=== PATIENT | male | born 1955 | race Caucasian/White ===

== ENCOUNTER → 2017-04-18 | Outpatient (CLI) | payer BC ==
[2017-04-18 16:35] LABS: ALT/SGPT 52 U/L (12-78); AST/SGOT 33 U/L (15-37); BLOOD UREA NITROGEN 14 mg/dl (7-18); BUN/CREATININE RATIO 12.8 (10-20); CALCIUM 8.8 mg/dl (8.5-10.1); CARBON DIOXIDE 28 mmol/L (21-32); CHLORIDE 106 mmol/L (98-107); GLUCOSE 108 mg/dl (70-99); POTASSIUM 3.7 mmol/L (3.5-5.1); SODIUM 142 mmol/L (136-145)
[2017-04-18 16:46] LABS: ALB/GLOB RATIO 1.2 (0.9-2); ALKALINE PHOSPHATASE 55 U/L (45-117); CHOLESTEROL 158 mg/dl (0-200); HDL CHOLESTEROL 40 mg/dl; LDL CHOLESTEROL CALCULATED 63 mg/dl; TRIGLYCERIDES 275 mg/dl (0-150); VERY LOW DENSITY LIPOPROT CALC 55 mg/dl
[2017-04-18 19:56] LABS: ESTIMATED AVERAGE GLUCOSE 192 mg/dl; HA1C FLAG Normal (Normal)
== END | disposition home or self-care (01) ==
LOC: C.LABBFT 12:37
PROVIDERS: ATTEND Internal Medicine
DX: E11.9 Type 2 diabetes mellitus without complications (principal)

== ENCOUNTER → 2017-07-04 | Outpatient (CLI) | payer BC | END | disposition home or self-care (01) | LOC: C.LABBFT 13:18 | PROVIDERS: ATTEND Nurse Practitioner Family | DX: N40.1 Benign prostatic hyperplasia with lower urinary tract symptoms (principal) ==

== ENCOUNTER → 2017-08-23 | Outpatient (CLI) | payer BC ==
[2017-08-23 09:48] LABS: HEMATOCRIT 43.7 % (42-52); MEAN CELL VOLUME 88.3 fL (80-100); MEAN CORPUSCULAR HEMOGLOBIN 31.1 pg (25-34); MEAN CORPUSCULAR HGB CONC 35.2 g/dl (32-36); PLATELET COUNT 165 K/uL (130-400); RED BLOOD COUNT 4.95 M/uL (4.7-6.1); WHITE BLOOD COUNT 5.13 K/uL (4.8-10.8)
[2017-08-23 10:05] LABS: ALT/SGPT 36 U/L (12-78); BLOOD UREA NITROGEN 14 mg/dl (7-18); BUN/CREATININE RATIO 15.9 (10-20); CALCIUM 9.1 mg/dl (8.5-10.1); CARBON DIOXIDE 29 mmol/L (21-32); CHLORIDE 107 mmol/L (98-107); CHOLESTEROL 143 mg/dl (0-200); CREATININE 0.88 mg/dl (0.60-1.40); GLUCOSE 145 mg/dl (70-99); SODIUM 141 mmol/L (136-145); TRIGLYCERIDES 165 mg/dl (0-150); VERY LOW DENSITY LIPOPROT CALC 33 mg/dl
[2017-08-23 10:15] LABS: ALB/GLOB RATIO 1.1 (0.9-2); ALKALINE PHOSPHATASE 50 U/L (45-117); AST/SGOT 19 U/L (15-37); CHOLESTEROL/HDL RATIO 3.5; HDL CHOLESTEROL 41 mg/dl; LDL CHOLESTEROL CALCULATED 69 mg/dl
== END | disposition home or self-care (01) ==
LOC: C.LAB 09:13
PROVIDERS: ATTEND Internal Medicine
DX: E11.65 Type 2 diabetes mellitus with hyperglycemia (principal)

== ENCOUNTER → 2017-09-13 | Outpatient (CLI) | payer BC ==
[2017-09-13 11:17] LABS: BLOOD UREA NITROGEN 17 mg/dl (7-18); BUN/CREATININE RATIO 18.6 (10-20); CREATININE 0.94 mg/dl (0.60-1.40)
== END | disposition home or self-care (01) ==
LOC: C.LAB 09:51
PROVIDERS: ATTEND Urology
DX: R97.20 Elevated prostate specific antigen [PSA] (principal)

== ENCOUNTER → 2017-10-03 | Outpatient (CLI) | payer BC ==
[~2017-10-03] VITALS: Ht 177.8 cm; Wt 104.3 kg
[2017-10-03 13:04] VITALS: BP 130/78; PULSE 93; Ht 177.8 cm; Wt 104.3 kg
== END | disposition home or self-care (01) ==
LOC: C.NEUR 12:53
PROVIDERS: ATTEND Internal Medicine Pulmonary Disease
DX: G47.33 Obstructive sleep apnea (adult) (pediatric) (principal); R06.83 Snoring; E66.9 Obesity, unspecified

== ENCOUNTER → 2017-11-27 | Outpatient (CLI) | payer BC | END | disposition home or self-care (01) | LOC: C.PATHSPEC 17:15 | PROVIDERS: ATTEND Urology | DX: R97.20 Elevated prostate specific antigen [PSA] (principal) ==

== ENCOUNTER → 2018-03-21 | Outpatient (CLI) | payer BC ==
[2018-03-21 11:42] LABS: HEMOGLOBIN A1C 6.5 % (4.5-5.6)
[2018-03-21 11:59] LABS: ALBUMIN 3.8 gm/dl (3.4-5.0); ALT/SGPT 27 U/L (12-78); AST/SGOT 15 U/L (15-37); BLOOD UREA NITROGEN 16 mg/dl (7-18); CALCIUM 8.9 mg/dl (8.5-10.1); CARBON DIOXIDE 27 mmol/L (21-32); CREATININE 0.92 mg/dl (0.60-1.40); GLUCOSE 176 mg/dl (70-99); POTASSIUM 3.8 mmol/L (3.5-5.1); SODIUM 138 mmol/L (136-145)
[2018-03-21 12:01] LABS: ALKALINE PHOSPHATASE 64 U/L (45-117); CHOLESTEROL 146 mg/dl (0-200); LDL CHOLESTEROL CALCULATED 54 mg/dl
== END | disposition home or self-care (01) ==
LOC: C.LAB 09:59
PROVIDERS: ATTEND Internal Medicine
DX: E11.9 Type 2 diabetes mellitus without complications (principal)

== ENCOUNTER 2023-06-07 19:25 | Inpatient (IN) ==
[2023-06-07] MEDS ORDERED: SODIUM CHLORIDE 0.9% 1000ML 500 ML IV ONE (19:48)
[2023-06-07] MEDS ORDERED: HYDROmorphone INJ 0.5 MG/0.5 ML SYR IV PRN (19:48)
[2023-06-07] MEDS ORDERED: ONDANSETRON INJ 2 MG/ML 2 ML VIAL IV STA (19:48)
[2023-06-07 20:30] LABS: Albumin Globulin Ratio 1.6 (0.9-2); Albumin Level 4.4 gm/dl (3.4-5.0); Bilirubin,Total 0.9 mg/dl (0.2-1.0); Calcium 9.3 mg/dl (8.6-10.3); Creatinine Clr Calc Pharmacy 85.4 ml/min; Est GFR (African American) 93.8 ml/min; Est GFR (Non-African American) 80.9 ml/min; Globulin 2.7 gm/dl (2.5-4.0); Potassium 4.2 mmol/L (3.5-5.1); Total Protein 7.1 gm/dl (6.0-8.3)
[2023-06-07] MEDS ORDERED: OPTIRAY 320 100ml IV ONE (20:34)
[2023-06-07 20:36] LABS: Troponin I High Sensitivity 3.3 pg/ml (0-20)
[2023-06-07 20:39] LABS: Hematocrit (blood only) 44.8 % (42.0-52.0); Hemoglobin 15.9 g/dl (14.0-18.0); Lymphocytes % (auto) 6.4 %; Mean Corpuscular Hemoglobin 30.9 pg (25.0-34.0); Mean Corpuscular Hgb Conc 35.5 g/dL (32.0-36.0); Mean Corpuscular Volume 87.2 fL (80.0-100.0); Mean Platelet Volume 10.6 fL (9.4-12.4); Monocytes % (auto) 5.2 %; Neutrophils % (auto) 87.4 %; Platelet Count 158 K/uL (130-400); RDW Coefficient of Variation 12.7 % (11.5-14.5); RDW Standard Deviation 40.6 fL (36.4-46.3); Red Blood Count 5.14 M/uL (4.70-6.10); White Blood Count 11.78 K/ul (4.8-10.8)
[2023-06-07 20:40] LABS: Basophils # (auto) 0.02 K/uL (0-0.2); Basophils % (auto) 0.2 %; Eosinophils # (auto) 0.01 K/uL (0-0.50); Eosinophils % (auto) 0.1 %; Immature Granulocytes # (auto) 0.08 K/uL (0.01-0.20); Immature Granulocytes % (auto) 0.7 %; Lymphocytes # (auto) 0.75 K/uL (1.2-3.4); Monocytes # (auto) 0.61 K/uL (0.11-0.59); Neutrophils # (auto) 10.31 K/uL (1.40-6.50); Platelet Estimate Decreased (Normal)
[2023-06-07] MEDS: SODIUM CHLORIDE 0.9% 1000ML 1,000 ML IV SCH (21:03)
--- NOTE | 2023-06-07 21:22 | Emergency Department Note ---
Impression & Plan Syncope and collapse, Closed compression fracture of lumbar vertebra, Cervical strain, acute, Abrasion of face ED Provider Note INFORMANT: Patient ED PROVIDER(S): Oscar Arciniega MD CHIEF COMPLAINT: Fall PLAN: Disposition: Admitted Condition: Good Outpatient prescription management: none Referral: MEDICAL DECISION MAKING: Patient presented because of a syncopal episode causing a fall. Chief complaint noted vertigo but it was actually lightheadedness. The patient did very well after the actual fall but then unfortunately developed more back pain. He was treated with fentanyl prehospital and currently is noting some returning of the pain with attempted movement. Cervical collar is in place. Work-up was initiated. Primary and secondary surveys performed. Patient only had a minor abrasion to the face. He is neurologically intact. He had no complaints of neurologic symptoms either. He was actually able to ambulate for several hours prior to the development of the pain. Full trauma CT imaging was performed to rule out any other injury but also to evaluate for the cause of the syncope. Head and cervical spine imaging were unremarkable. I did review the patient's cervical collar and examine him fully. He had no residual tenderness. He had excellent range of motion without limitation. Chest and abdomen/pelvis imaging unremarkable except for the fact that there is a visible nondisplaced L2 fracture as well as an endplate L3 fracture. The patient did receive a dose of IV Dilaudid and was hydrated. He also received Zofran. He was reassessed multiple times. Initially there was some delay and reaching orthopedic spine however I was able to discuss the case with Dr. Murrieta and he felt the patient would be appropriate to stay here as his injury is nonoperative. He will consult on the patient in the morning. Exact etiology of the patient's syncopal episode is still not obvious. Further management will be necessary. Consultation was made with Dr. Elie Eller of the [facility] service. Patient was evaluated in the ER for further management. Discussed with manager statistical After review of the information above and other included data, I feel the patient requires admission. Triage Nursing notes reviewed and agree them. Vital Signs: reviewed and remarkable for no significant abnormalities Prior /Outside records reviewed: none Differential diagnosis: Fracture, dislocation, contusion, intra-abdominal, pneumothorax, intrathoracic, intracranial, neurologic, compartment syndrome, rhabdomyolysis, Vasovagal event, dehydration, infection, hypoglycemia, electrolyte abnormalities, cardiac sources, intracerebral event, pulmonary embolism, seizure, toxicologic, neurologic, as well as other pathologies. Diagnostics, as interpreted by me: ECG: Twelve-lead ECG reveals a normal sinus rhythm at 72 bpm. Incomplete right bundle branch block. No ST elevation or depression. No TWI. When compared to 04/09/2022 there is no change. Cardiac Monitoring: Cardiac monitoring ordered by me: The patient was placed on continuous cardiac monitoring and observed. It revealed a normal sinus rhythm at 82 beats per minute without ectopy or evidence of dysrhythmia. Medical decision rules: none Imaging studies: CT scan of the head and cervical spine negative for acute traumatic pathology. CT scan of the chest with IV contrast is negative for traumatic pathology. CT scan of the abdomen pelvis as well as lumbar spine reveal an L2 vertical fracture and L3 endplate fracture. HPI: The patient is a 68 year old male who presents to the Emergency Room with complaints of fall. This started about 7 hours ago and is described about falli ng 5 to 6 feet off of scaffolding at his home. Patient states he has been getting lightheaded and today was working for about half an hour and then knew he was getting lightheaded again. Denied any room spinning-like sensations. Patient states he then had a syncopal episode. He woke up on the ground. He was able to get up and cleaned up his work stuff. He states that he was able to ambulate without difficulty or much pain at all. Patient then went inside to rest and started to develop low back pain. He then noted some minimal low cervical neck pain after several hours. Patient states that when he got up again he felt lightheaded like he may pass out but did not. The patient also n otes the following associated symptoms, none. The patient has been given fentanyl by EMS for relieving factors. Current pain is rated as 1/10. Patient denies recent illness. Pt denies headache, visual changes, upper chest pain, breathing difficulties, nausea, vomiting, abdominal pain, back pain, extremity pain, numbness, weakness, open wounds, active bleeding, bowel or bladder dysfunction, or other complaints. PAST MEDICAL HISTORY: See Below, diabetes, hypertension PAST SURGICAL HISTORY: See Below, SOCIAL HISTORY: See Below, HOME MEDICATIONS: See Below ALLERGIES: See Below VITALS: See Below PHYSICAL EXAMINATION: GENERAL: Awake, alert, nontoxic-appearing, in no distress HENT: Normocephalic, atraumatic except for minor abrasion on chin. Oropharynx unremarkable. EYES: Normal conjunctiva. Sclera non-icteric. NECK: Inspection normal. Minimal inferior midline tenderness without step-offs. Trachea midline. No JVD. RESPIRATORY: Clear to auscultation. No wheezes. No rales. Normal respiratory effort. CARDIAC: Normal rate. Normal rhythm. No murmurs. No rubs. Extremities warm and well perfused. Pulses equal. No JVD. GI: Soft, non-distended. No tenderness to palpation. No rebound or guarding. No masses. RECTAL: Deferred. MUSCULOSKELETAL: Atraumatic extremities. Chest examination reveals no tenderness. There is lumbar midline tenderness without step-off. No joint edema. Calves are equal size bilaterally and non-tender. No edema. No discoloration. NEURO: Normal sensorium. No sensory or motor deficits noted. No saddle anesthesia. SKIN: No rash or jaundice noted. Past Med/Surg History Medical History BPH (benign prostatic hyperplasia) Diabetes mellitus, type 2 Dyslipidemia Fatty liver Hypertension Sensorineural hearing loss of both ears Sleep apnea Tinnitus, bilateral Surgical History H/O prostate biopsy History of colonoscopy History of lumbar surgery History of tooth extraction Hx of oral surgery (12/25/22) Hx of surgical procedure Family History Brother Diabetes Sister Diabetes Mother Diabetes Father Diabetes Grandmother Colon cancer Unknown Hypertension Grandfather Myocardial infarction Uncle Prostate cancer Other No family history of adverse response to anesthesia Denies family history of Ovarian cancer Breast cancer Social History Smoking Status: Never smoker Second Hand Exposure: No; Do You Dip or Chew Tobacco: No; Hx Alcohol Use: Yes Alcohol type: hard liquor Alcohol Intake Frequency: Monthly or Less Alcohol Intake Frequency Comment: rarely Hx Substance Use: No Preferred Language: Nicaraguan Communication Ability: Effective Visual Impairment: No Limitations Hearing Ability: Normal Scrip Clerk Required: No Beliefs That Will Affect Care: None marital status: Current Living Situation: Spouse current occupational status: retired current occupation: used to work in construction How many Children do You have: 2 Feels Safe at Home: Yes Childhood Exposure to Second-Hand Smoke: No Diet: diabetic caffeine: Yes (very little) during the past year weight has: remained stable Dental Care, Regularly: No Physical Activity Frequency: Does not Exercise Physical Activity Frequency Comment: does mostly throughout the summer Seatbelt Use: always Sunscreen Use: No Assistive Devices: CPAP and Glasses Allergies Allergies Allergy/AdvReac Type Severity Reaction Status Date / Time IRVING Inhibitors AdvReac Intermediate Cough Verified 01/28/23 12:51 Beta-Adrenergic Agents AdvReac Intermediate Cough Verified 01/28/23 12:51 Home Meds Home Medications Medication Instructions Recorded Confirmed [id number] acid 400 1 tab PO QAM 08/10/18 04/24/23 mcg-vit K 20 mcg-lycop 300 mcg tablet (Men's Multivitamin) cholecalciferol (vitamin D3) 25 25 mcg PO QAM 06/27/21 04/24/23 mcg (1,000 unit) capsule aspirin 81 mg tablet,delayed 81 mg PO QAM 04/16/22 04/24/23 release tamsulosin 0.4 mg capsule 0.8 mg PO PM 12/20/22 04/24/23 Previous Rx's Medication Instructions Recorded atorvastatin 10 mg tablet 10 mg PO QPM #90 tabs 09/23/22 insulin glargine 100 unit/mL (3 40 unit (0.4 mL) subcut QAM #45 mL 09/23/22 mL) subcutaneous pen (Lantus Solostar U-100 Insulin) metformin 1,000 mg tablet 1,000 mg PO BID #180 tabs 09/23/22 losartan 100 1 tab PO QAM #90 tabs 09/24/22 mg-hydrochlorothiazide 12.5 mg tablet nifedipine 60 mg tablet,extended 60 mg PO QAM #90 tabs 09/24/22 release pen needle, diabetic 31 gauge x #100 ea 09/26/2216" (BD Ultra-Fine Mini Pen Needle) blood sugar diagnostic (OneTouch #200 ea 10/21/22 Verio test strips) lancets 33 gauge (OneTouch Delica #200 ea 10/21/22 Lancets) Trulicity 3 mg/0.5 mL subcutaneous 3 mg (0.5 mL) subcut .COMPLEX #6 mL 11/12/22 pen injector (dulaglutide) ondansetron HCl 8 mg tablet 8 mg PO Q8H PRN nausea and 12/25/22 vomiting #10 tabs finasteride 5 mg tablet 5 mg PO DAILY #90 tabs 03/13/23 Results & Data (ED) Vital Signs Vital Signs - 24 hr 06/07/23 19:28 06/07/23 19:33 06/07/23 19:31 Temperature 36.8 C Temperature Source Oral Pulse Rate 89 89 Pulse Rate [Apical] Pulse Rhythm [Apical] Pulse Strength [Apical] Respiratory Rate 16 15 Respiratory Effort / Characteristics Non-Labored Non-Labored Respiratory Depth Normal Normal Respiratory Pattern Regular Regular Blood Pressure 143/85 H Blood Pressure [Right Arm] Blood Pressure Mean 104 Blood Pressure Mean [Right Arm] Pulse Oximetry 93 98 Oxygen Delivery Method Room Air Room Air Oxygen Flow Rate Sepsis Recent Fever Within 48 Hours No Sepsis New/Unexplained Change in Mental Status No Sepsis Action Taken by Nursing No Action Required 06/07/23 19:48 06/07/23 21:15 06/07/23 22:55 Temperature 36.9 C Temperature Source Oral Pulse Rate 82 Pulse Rate [Apical] 71 63 Pulse Rhythm [Apical] Regular Regular Pulse Strength [Apical] Respiratory Rate 16 14 Respiratory Effort / Characteristics Non-Labored Non-Labored Respiratory Depth Normal Normal Respiratory Pattern Regular Blood Pressure Blood Pressure [Right Arm] 123/74 115/75 Blood Pressure Mean Blood Pressure Mean [Right Arm] 90 88 Pulse Oximetry 99 95 96 Oxygen Delivery Method Room Air Nasal Cannula Oxygen Flow Rate 2 Sepsis Recent Fever Within 48 Hours Sepsis New/Unexplained Change in Mental Status Sepsis Action Taken by Nursing 06/07/23 23:32 06/08/23 00:00 Temperature Temperature Source Pulse Rate 64 Pulse Rate [Apical] 64 Pulse Rhythm [Apical] Regular Pulse Strength [Apical] Normal Respiratory Rate 21 Respiratory Effort / Characteristics Non-Labored Spontaneous Respiratory Depth Normal Respiratory Pattern Regular Blood Pressure Blood Pressure [Right Arm] 136/76 Blood Pressure Mean Blood Pressure Mean [Right Arm] 96 Pulse Oximetry 96 Oxygen Delivery Method Nasal Cannula Oxygen Flow Rate 2 Sepsis Recent Fever Within 48 Hours Sepsis New/Unexplained Change in Mental Status Sepsis Action Taken by Nursing Laboratory Data 06/07/23 19:34 06/07/23 19:34 Lab Results 07/22/23 07/22/23 07/22/23 Range/Units 19:34 19:34 20:10 WBC 11.78 H (4.8-10.8) K/ul RBC 5.14 (4.70-6.10) M/uL Hgb 15.9 (14.0-18.0) g/dl Hct 44.8 (42.0-52.0) % MCV 87.2 (80.0-100.0) fL MCH 30.9 (25.0-34.0) pg MCHC 35.5 (32.0-36.0) g/dL RDW Std Deviation 40.6 (36.4-46.3) fL RDW Coeff of Justice 12.7 (11.5-14.5) % Plt Count 158 (130-400) K/uL MPV 10.6 (9.4-12.4) fL Immature Gran % (Auto) 0.7 % Neut % (Auto) 87.4 % Lymph % (Auto) 6.4 % [place] % (Auto) 5.2 % Eos % (Auto) 0.1 % Baso % (Auto) 0.2 % Neut # (Auto) 10.31 H (1.40-6.50) K/uL Lymph # (Auto) 0.75 L (1.2-3.4) K/uL [place] # (Auto) 0.61 H (0.11-0.59) K/uL Eos # (Auto) 0.01 (0-0.50) K/uL Baso # (Auto) 0.02 (0-0.2) K/uL Immature Gran # (Auto) 0.08 (0.01-0.20) K/uL Platelet Estimate Decreased L (Normal) Sodium 137 (136-145) mmol/L Potassium 4.2 (3.5-5.1) mmol/L Chloride 104 (98-107) mmol/L Carbon Dioxide 25 (21-32) mmol/L Anion Gap 8 (3-11) BUN 23 (6-23) mg/dl Creatinine 0.96 (0.6-1.4) mg/dl Est Cr Clr Drug Dosing 85.4 ml/min Est GFR ( Amer) 93.8 ml/min Est GFR (Non-Af Amer) 80.9 ml/min BUN/Creatinine Ratio 24.0 H (10-20) Glucose 160 H (70-99(Fasting)) mg/dl Calcium 9.3 (8.6-10.3) mg/dl Total Bilirubin 0.9 (0.2-1.0) mg/dl AST 25 (13-39) U/L ALT 17 (7-52) U/L Alkaline Phosphatase 57 (34-104) U/L Troponin I High Sens 3.3 (0-20) pg/ml Total Protein 7.1 (6.0-8.3) gm/dl Albumin 4.4 (3.4-5.0) gm/dl Globulin 2.7 (2.5-4.0) gm/dl Albumin/Globulin Ratio 1.6 (0.9-2) Urine Color Urine Appearance (Clear) Urine pH (4.5-7.5) Ur Specific [place] (1.000-1.030) Urine Protein (Negative) Urine Glucose (UA) (Negative) Urine Ketones (Negative) Urine Blood (Negative) Urine Nitrite (Negative) Urine Bilirubin (Negative) Urine Urobilinogen (Negative) Ur Leukocyte Esterase (Negative) SARS-CoV-2, RNA, NAAT NEGATIVE (NEGATIVE) 06/07/23 Range/Units 23:04 WBC (4.8-10.8) K/ul RBC (4.70-6.10) M/uL Hgb (14.0-18.0) g/dl Hct (42.0-52.0) % MCV (80.0-100.0) fL MCH (25.0-34.0) pg MCHC (32.0-36.0) g/dL RDW Std Deviation (36.4-46.3) fL RDW Coeff of Justice (11.5-14.5) % Plt Count (130-400) K/uL MPV (9.4-12.4) fL Immature Gran % (Auto) % Neut % (Auto) % Lymph % (Auto) % [place] % (Auto) % Eos % (Auto) % Baso % (Auto) % Neut # (Auto) (1.40-6.50) K/uL Lymph # (Auto) (1.2-3.4) K/uL [place] # (Auto) (0.11-0.59) K/uL Eos # (Auto) (0-0.50) K/uL Baso # (Auto) (0-0.2) K/uL Immature Gran # (Auto) (0.01-0.20) K/uL Platelet Estimate (Normal) Sodium (136-145) mmol/L Potassium (3.5-5.1) mmol/L Chloride (98-107) mmol/L Carbon Dioxide (21-32) mmol/L Anion Gap (3-11) BUN (6-23) mg/dl Creatinine (0.6-1.4) mg/dl Est Cr Clr Drug Dosing ml/min Est GFR ( Amer) ml/min Est GFR (Non-Af Amer) ml/min BUN/Creatinine Ratio (10-20) Glucose (70-99(Fasting)) mg/dl Calcium (8.6-10.3) mg/dl Total Bilirubin (0.2-1.0) mg/dl AST (13-39) U/L ALT (7-52) U/L Alkaline Phosphatase (34-104) U/L Troponin I High Sens (0-20) pg/ml Total Protein (6.0-8.3) gm/dl Albumin (3.4-5.0) gm/dl Globulin (2.5-4.0) gm/dl Albumin/Globulin Ratio (0.9-2) Urine Color Yellow Urine Appearance Clear (Clear) Urine pH 5.5 (4.5-7.5) Ur Specific [place] > 1.045 H (1.000-1.030) Urine Protein Negative (Negative) Urine Glucose (UA) Negative (Negative) Urine Ketones 1+ H (Negative) Urine Blood Negative (Negative) Urine Nitrite Negative (Negative) Urine Bilirubin Negative (Negative) Urine Urobilinogen Negative (Negative) Ur Leukocyte Esterase Negative (Negative) SARS-CoV-2, RNA, NAAT (NEGATIVE) Administered Medications Hydromorphone HCl (Hydromorphone Inj 0.5 Mg/0.5 Ml Syr) 0.5 mg IV Q15M PRN PRN Reason: pain Stop: 06/21/23 19:59 Last Admin: 06/07/23 20:16 Dose: 0.5 mg Documented By: CEK Sodium Chloride (Nss 1000ml) 1,000 mls @ 125 mls/hr IV .Q8H MICHAEL Stop: 07/07/23 19:59 Last Admin: 06/07/23 21:03 Dose: 125 mls/hr Documented By: BRIONNA Discontinued Medications Atorvastatin Calcium (Atorvastatin 10 Mg Tab) 10 mg PO NOW ONE Stop: 06/08/23 00:52 Last Admin: 06/08/23 01:11 Dose: 10 mg Documented By: MAXWELL Sodium Chloride (Nss 1000ml) 500 mls @ 999 mls/hr IV .Q31M ONE Stop: 06/07/23 20:18 Last Infusion: 06/07/23 20:46 Dose: 999 mls/hr Documented By: Admin: 06/07/23 20:11 Dose: 999 mls/hr Documented By: BRIONNA Ioversol (Optiray 320 100ml) 94 ml IV ONCE ONE Stop: 06/07/23 20:35 Last Admin: 06/07/23 20:35 Dose: 94 ml Documented By: HERBER Ondansetron HCl (Ondansetron Inj 2 Mg/Ml 2 Ml Vial) 4 mg IV NOW STA Stop: 06/07/23 19:49 Last Admin: 06/07/23 20:16 Dose: 4 mg Documented By: BRIONNA Tamsulosin HCl (Tamsulosin Hcl 0.4 Mg Cap) 0.8 mg PO NOW ONE Stop: 06/08/23 00:52 Last Admin: 06/08/23 01:04 Dose: 0.8 mg Documented By: MAXWELL Imaging Data Radiologist's Impression: Abdomen/Pelvis CT 06/07/23 19:49 Exam(s): CT ABDOMEN + PELVIS With Contrast IV Amt: 94 ml optiray 320 EXAM: CT Abdomen and Pelvis With Intravenous Contrast CLINICAL HISTORY: Reason for exam: syncope, fall 6 ft. TECHNIQUE: Axial computed tomography images of the abdomen and pelvis with intravenous contrast. CTDI is 26.665 mGy and DLP is 1540.27 mGy-cm. Automated exposure control was utilized for the study. A dose lowering technique was utilized adhering to the principles of ALARA. CONTRAST: Patient received 94 ml optiray 320 of IV contrast COMPARISON: No relevant prior studies available. FINDINGS: Lung bases: Unremarkable. No mass. No consolidation. Mediastinum: Calcified subcarinal lymph nodes, partially included in the [id number]-[id number]-gyun. ABDOMEN: Liver: Unremarkable. No mass. Gallbladder and bile ducts: Unremarkable. No calcified stones. No ductal dilation. Pancreas: Unremarkable. No mass. No ductal dilation. Spleen: Unremarkable. No splenomegaly. Adrenals: Unremarkable. No mass. Kidneys and ureters: Unremarkable. No hydronephrosis or delayed nephrogram. Stomach and bowel: Diverticulosis, without acute diverticulitis. No small bowel obstruction. No free intraperitoneal air. PELVIS: Appendix: Normal appendix. Bladder: Nonobstructing calculi in the urinary bladder. Reproductive: Enlarged prostate gland measures 6.7 cm mid-lateral. ABDOMEN and PELVIS: Intraperitoneal space: Unremarkable. No free air. No significant fluid collection. Bones/joints: Acute fractures of L2 and L3, see the concomitant lumbar spine CT scan. Degenerative changes of the spine. No dislocation. Soft tissues: Unremarkable. Vasculature: Atherosclerotic changes of the aorta. No abdominal aortic aneurysm. Lymph nodes: See above. IMPRESSION: Acute fractures of L2 and L3, see the concomitant lumbar spine CT scan. Electronically signed by: Ibrahima Huber MD 06/07/23 22:[address] 06/07/23 19:49 Exam(s): CT C SPINE EXAM: CT Cervical Spine Without Intravenous Contrast CLINICAL HISTORY: Reason for exam: Trauma. TECHNIQUE: Axial computed tomography images of the cervical spine without intravenous contrast. CTDI is 26.65 mGy and DLP is 607.41 mGy-cm. Automated exposure control was utilized for the study. A dose lowering technique was utilized adhering to the principles of ALARA. COMPARISON: No relevant prior studies available. FINDINGS: The vertebral body heights are maintained. The craniocervical junction is intact. The atlanto-dens interval is maintained. The dens is intact. There is no spondylolisthesis. Multilevel cervical spondylosis and degenerative disc disease. Straightening of the cervical lordosis. The unenhanced neck soft tissues are grossly unremarkable. The visualized lung apices are grossly clear. IMPRESSION: No acute fracture or subluxation of the cervical spine. Electronically signed by: Ibrahima Huber MD 06/07/23 21:[address] 06/07/23 19:49 Exam(s): CT CHEST With Contrast IV Amt: 94 ml optiray 320 EXAM: CT Chest With Intravenous Contrast CLINICAL HISTORY: Reason for exam: Trauma. TECHNIQUE: Axial computed tomography images of the chest with intravenous contrast. CTDI is 28.14 mGy and DLP is 1021.39 mGy-cm. Automated exposure control was utilized for the study. A dose lowering technique was utilized adhering to the principles of ALARA. CONTRAST: Patient received 94 ml optiray 320 of IV contrast COMPARISON: No relevant prior studies available. FINDINGS: Lungs: Dependent atelectasis. Pleural space: Unremarkable. No focal consolidation, pleural effusion, or pneumothorax. Heart: Unremarkable. No significant pericardial effusion. No significant coronary artery calcifications. No cardiomegaly. Mediastinum: Calcified subcarinal and RIGHT hilar lymph nodes, correlate for history of granulomatous disease. Bones/joints: Unremarkable. No dislocation. No acute fractures. Soft tissues: Unremarkable. Vasculature: Unremarkable. No thoracic aortic aneurysm. Lymph nodes: See above. IMPRESSION: 1. No focal consolidation, pleural effusion, or pneumothorax. 2. No acute fractures. 3. Calcified subcarinal and RIGHT hilar lymph nodes, correlate for history of granulomatous disease. Electronically signed by: Ibrahima Huber MD 06/07/23 21:[address] 06/07/23 19:49 Exam(s): CT HEAD Without Contrast EXAM: CT Head Without Intravenous Contrast CLINICAL HISTORY: Reason for exam: Trauma. TECHNIQUE: Axial computed tomography images of the head/brain without intravenous contrast. CTDI is 36.9 mGy and DLP is 624.41 mGy-cm. Automated exposure control was utilized for the study. A dose lowering technique was utilized adhering to the principles of ALARA. COMPARISON: No relevant prior studies available. FINDINGS: No acute intracranial hemorrhage. No midline shift or mass effect. The territorial [place]-white matter differentiation is maintained throughout. Age-related cerebral volume loss. Periventricular and subcortical white matter hypoattenuation, consistent with chronic microangiopathy. The visualized orbits appear grossly unremarkable. The calvarium is intact. The visualized paranasal sinuses and mastoid air cells are grossly clear. IMPRESSION: No acute intracranial hemorrhage, midline shift, or mass effect. Electronically signed by: Ibrahima Huber MD 06/07/23 21:[address] 06/07/23 19:49 Exam(s): CT L SPINE With Contrast IV Amt: 94 ml optiray 320 EXAM: CT Lumbar Spine With Intravenous Contrast CLINICAL HISTORY: Reason for exam: Trauma. TECHNIQUE: Axial computed tomography images of the lumbar spine with intravenous contrast. CTDI is 26.65 mGy and DLP is 1540.27 mGy-cm. Automated exposure control was utilized for the study. A dose lowering technique was utilized adhering to the principles of ALARA. CONTRAST: Patient received 94 ml optiray 320 of IV contrast COMPARISON: No relevant prior studies available. FINDINGS: Acute fracture of the superior endplate of L3, without significant loss of height. Acute fracture vertically through the L2 vertebral body. Mild, chronic loss of height. Lumbar spine MRI should be considered for further evaluation. No spondylolisthesis. The posterior elements are maintained, without evidence of acute fracture. The pedicles are intact. Multilevel lumbar spondylosis and degenerative disc disease. IMPRESSION: Acute fracture of the superior endplate of L3, without significant loss of height. Acute fracture vertically through the L2 vertebral body. Mild, chronic loss of height. Electronically signed by: Ibrahima Huber MD 06/07/23 21:55 PM Discharge Plan Visit Data Chief Complaint: Fall Stated Complaint: FELL 5-6 FEET AT NOON, BACK PAIN ED Provider: Oscar Arciniega Discharge Problem: Syncope and collapse, Closed compression fracture of lumbar vertebra, Cervical strain, acute, Abrasion of face Forms Stand Alone Forms: [facility] Nostalgia [facility]ingo Prescriptions Prescriptions: No Action metformin 1,000 mg tablet 1,000 mg PO BID Qty: 180 3RF insulin glargine [Lantus Solostar U-100 Insulin] 100 unit/mL (3 mL) insulin pen 40 unit subcut QAM Qty: 45 3RF atorvastatin 10 mg tablet 10 mg PO QPM Qty: 90 3RF nifedipine 60 mg tablet extended release 60 mg PO QAM Qty: 90 3RF losartan-hydrochlorothiazide 100-12.5 mg tablet 1 tab PO QAM Qty: 90 3RF (DME) pen needle, diabetic [BD Ultra-Fine Mini Pen Needle] 31 gauge x 3/16" needle See Rx Instructions .ROUTE .MEDSUPPLY Qty: 100 3RF Rx Instructions: as directed once daily (DME) lancets [OneTouch Delica Lancets] 33 gauge misc See Rx Instructions .ROUTE .MEDSUPPLY Qty: 200 3RF Rx Instructions: USE TO CHECK BLOOD SUGARS TWICE DAILY E11.9 (DME) OneTouch Verio test strips Strip See Rx Instructions .ROUTE .MEDSUPPLY Qty: 200 3RF Rx Instructions: test 2 times daily daily or as directed Trulicity 3 mg/0.5 mL pen injector 3 mg subcut .COMPLEX Qty: 6 3RF Rx Instructions: 3 mg subcut once a week.; ondansetron HCl 8 mg tablet 8 mg PO Q8H PRN (Reason: nausea and vomiting) Qty: 10 0RF finasteride 5 mg tablet 5 mg PO DAILY Qty: 90 3RF cholecalciferol (vitamin D3) 25 mcg (1,000 unit) capsule 25 mcg PO QAM Men's Multivitamin 400-20-300 mcg Tablet 1 tab PO QAM tamsulosin 0.4 mg capsule 0.8 mg PO PM aspirin 81 mg tablet,delayed release (DR/EC) 81 mg PO QAM Referrals Referrals: Alba Rod [facility] [Primary Care Provider] -
--- NOTE | 2023-06-07 21:53 | CT Scan Report ---
Exam(s): CT HEAD Without Contrast EXAM: CT Head Without Intravenous Contrast CLINICAL HISTORY: Reason for exam: Trauma. TECHNIQUE: Axial computed tomography images of the head/brain without intravenous contrast. CTDI is 36.9 mGy and DLP is 624.41 mGy-cm. Automated exposure control was utilized for the study. A dose lowering technique was utilized adhering to the principles of ALARA. COMPARISON: No relevant prior studies available. FINDINGS: No acute intracranial hemorrhage. No midline shift or mass effect. The territorial [place]ev[place]-white matter differentiation is maintained throughout. Age-related cerebral volume loss. Periventricular and subcortical white matter hypoattenuation, consistent with chronic microangiopathy. The visualized orbits appear grossly unremarkable. The calvarium is intact. The visualized paranasal sinuses and mastoid air cells are grossly clear. IMPRESSION: No acute intracranial hemorrhage, midline shift, or mass effect. Electronically signed by: Ibrahima Huber MD 06/07/23 21:51 PM
--- NOTE | 2023-06-07 21:53 | CT Scan Report ---
Exam(s): CT C SPINE EXAM: CT Cervical Spine Without Intravenous Contrast CLINICAL HISTORY: Reason for exam: Trauma. TECHNIQUE: Axial computed tomography images of the cervical spine without intravenous contrast. CTDI is 26.65 mGy and DLP is 607.41 mGy-cm. Automated exposure control was utilized for the study. A dose lowering technique was utilized adhering to the principles of ALARA. COMPARISON: No relevant prior studies available. FINDINGS: The vertebral body heights are maintained. The craniocervical junction is intact. The atlanto-dens interval is maintained. The dens is intact. There is no spondylolisthesis. Multilevel cervical spondylosis and degenerative disc disease. Straightening of the cervical lordosis. The unenhanced neck soft tissues are grossly unremarkable. The visualized lung apices are grossly clear. IMPRESSION: No acute fracture or subluxation of the cervical spine. Electronically signed by: Ibrahima Huber MD 06/07/23 21:52 PM
--- NOTE | 2023-06-07 21:55 | CT Scan Report ---
Exam(s): CT CHEST With Contrast IV Amt: 94 ml optiray 320 EXAM: CT Chest With Intravenous Contrast CLINICAL HISTORY: Reason for exam: Trauma. TECHNIQUE: Axial computed tomography images of the chest with intravenous contrast. CTDI is 28.14 mGy and DLP is 1021.39 mGy-cm. Automated exposure control was utilized for the study. A dose lowering technique was utilized adhering to the principles of ALARA. CONTRAST: Patient received 94 ml optiray 320 of IV contrast COMPARISON: No relevant prior studies available. FINDINGS: Lungs: Dependent atelectasis. Pleural space: Unremarkable. No focal consolidation, pleural effusion, or pneumothorax. Heart: Unremarkable. No significant pericardial effusion. No significant coronary artery calcifications. No cardiomegaly. Mediastinum: Calcified subcarinal and RIGHT hilar lymph nodes, correlate for history of granulomatous disease. Bones/joints: Unremarkable. No dislocation. No acute fractures. Soft tissues: Unremarkable. Vasculature: Unremarkable. No thoracic aortic aneurysm. Lymph nodes: See above. IMPRESSION: 1. No focal consolidation, pleural effusion, or pneumothorax. 2. No acute fractures. 3. Calcified subcarinal and RIGHT hilar lymph nodes, correlate for history of granulomatous disease. Electronically signed by: Ibrahima Huber MD 06/07/23 21:54 PM
--- NOTE | 2023-06-07 21:56 | CT Scan Report ---
Exam(s): CT L SPINE With Contrast IV Amt: 94 ml optiray 320 EXAM: CT Lumbar Spine With Intravenous Contrast CLINICAL HISTORY: Reason for exam: Trauma. TECHNIQUE: Axial computed tomography images of the lumbar spine with intravenous contrast. CTDI is 26.65 mGy and DLP is 1540.27 mGy-cm. Automated exposure control was utilized for the study. A dose lowering technique was utilized adhering to the principles of ALARA. CONTRAST: Patient received 94 ml optiray 320 of IV contrast COMPARISON: No relevant prior studies available. FINDINGS: Acute fracture of the superior endplate of L3, without significant loss of height. Acute fracture vertically through the L2 vertebral body. Mild, chronic loss of height. Lumbar spine MRI should be considered for further evaluation. No spondylolisthesis. The posterior elements are maintained, without evidence of acute fracture. The pedicles are intact. Multilevel lumbar spondylosis and degenerative disc disease. IMPRESSION: Acute fracture of the superior endplate of L3, without significant loss of height. Acute fracture vertically through the L2 vertebral body. Mild, chronic loss of height. Electronically signed by: Ibrahima Huber MD 06/07/23 21:55 PM
--- NOTE | 2023-06-07 22:18 | CT Scan Report ---
Exam(s): CT ABDOMEN + PELVIS With Contrast IV Amt: 94 ml optiray 320 EXAM: CT Abdomen and Pelvis With Intravenous Contrast CLINICAL HISTORY: Reason for exam: syncope, fall 6 ft. TECHNIQUE: Axial computed tomography images of the abdomen and pelvis with intravenous contrast. CTDI is 26.665 mGy and DLP is 1540.27 mGy-cm. Automated exposure control was utilized for the study. A dose lowering technique was utilized adhering to the principles of ALARA. CONTRAST: Patient received 94 ml optiray 320 of IV contrast COMPARISON: No relevant prior studies available. FINDINGS: Lung bases: Unremarkable. No mass. No consolidation. Mediastinum: Calcified subcarinal lymph nodes, partially included in the [id number]. ABDOMEN: Liver: Unremarkable. No mass. Gallbladder and bile ducts: Unremarkable. No calcified stones. No ductal dilation. Pancreas: Unremarkable. No mass. No ductal dilation. Spleen: Unremarkable. No splenomegaly. Adrenals: Unremarkable. No mass. Kidneys and ureters: Unremarkable. No hydronephrosis or delayed nephrogram. Stomach and bowel: Diverticulosis, without acute diverticulitis. No small bowel obstruction. No free intraperitoneal air. PELVIS: Appendix: Normal appendix. Bladder: Nonobstructing calculi in the urinary bladder. Reproductive: Enlarged prostate gland measures 6.7 cm mid-lateral. ABDOMEN and PELVIS: Intraperitoneal space: Unremarkable. No free air. No significant fluid collection. Bones/joints: Acute fractures of L2 and L3, see the concomitant lumbar spine CT scan. Degenerative changes of the spine. No dislocation. Soft tissues: Unremarkable. Vasculature: Atherosclerotic changes of the aorta. No abdominal aortic aneurysm. Lymph nodes: See above. IMPRESSION: Acute fractures of L2 and L3, see the concomitant lumbar spine CT scan. Electronically signed by: Ibrahima Huber MD 06/07/23 22:18 PM
[2023-06-07 23:11] LABS: Appearance Urine Clear (Clear); Bilirubin Urine Negative (Negative); Blood Urine Negative (Negative); Color Urine Yellow; Glucose Urine UA Negative (Negative); Ketones Urine 1+ (Negative); Leukocyte Esterase Urine Negative (Negative); Nitrite Urine Negative (Negative); Protein Urine Negative (Negative); Specific Gravity Urine > 1.045 (1.000-1.030); Urobilinogen Urine Negative (Negative); pH Urine 5.5 (4.5-7.5)
[2023-06-08] MEDS ORDERED: TAMSULOSIN HCL 0.4 MG CAP PO ONE (00:51)
[2023-06-08] MEDS ORDERED: ATORVASTATIN 10 MG TAB PO ONE (00:51)
--- NOTE | 2023-06-08 01:37 | History & Physical Report ---
Date of Service June 08, 2023 Assessment & Plan (1) Closed compression fracture of lumbar vertebra: Plan: Patient is a 68-year-old male with past medical history of DM 2, hypertension, hyperlipidemia, severe obstructive sleep apnea, and fatty liver disease who pres ents to the hospital for evaluation for fall. Patient found to have 2 lumbar fractures that are nonoperative. Patient to be admitted to be evaluated by orthospine and for adequate pain control. -Admit to [facility] with telemetry, telemetry indication being syncope -Lumbar CT showing acute fracture of the superior endplate of L3 and acute fracture vertically through the L2 vertebral body, orthospine consulted, appreciate recommendations -Pain control with Tylenol and morphine as needed (2) Syncope and collapse: Plan: - I feel the patient's syncope is likely due to dehydration in the setting of little oral intake this morning and working outside as well as taking 3 blood pressure medications -Unable to perform orthostatics given patient's lumbar fractures -Otherwise I feel like the patient is experiencing BPPV long-term but today symptoms are more so aligned with dehydration as previously mentioned -We will keep on telemetry in case there is some sort of arrhythmia (3) Controlled type 2 diabetes mellitus with insulin therapy: Plan: - Hold Trulicity and metformin, basal bolus insulin with sliding scale while inpatient -Carb consistent diet (4) Enlarged prostate with lower urinary tract symptoms (LUTS): Plan: - Continue finasteride and Flomax (5) Severe obstructive sleep apnea: Plan: - CPAP at night at 6 cm H2O (6) Hypertension: Plan: - Continue BP meds, patient status post bolus of normal saline (7) Dyslipidemia: Plan: - Continue statin Plan Dispo: Admit to MedSurg with telemetry Diet: Carb consistent, not n.p.o. given vertebral fractures are nonoperative DVT prophylaxis: Lovenox, no active bleeding and no procedure indicated CODE STATUS: Full code History of Present Illness Chief Complaint: Fall Primary Care Provider: Alba Rod PA-C Patient is a 68-year-old male with past medical history of DM 2, hypertension, hyperlipidemia, severe obstructive sleep apnea, and fatty liver disease who presents to the hospital for evaluation for fall. Patient reports that approximately noon today, patient was on scaffolding doing work on the house. 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 The fall was approximately 5 to 6 feet. Patient reports he was only passed out for a short period of time. He then got up and reported that he was in minimal to no pain at the time but as the day progressed, he became more lightheaded and started to develop pain in his lower back. Because the dizziness persisted and the pain was becoming worse, his called EMS services to come to the emergency department for further evaluation. It seems the patient has been having difficulty with dizziness for the past 2 years. Occurs about once a months for the patient gets a room spinning sensation but only lasts a few seconds to a minute before going away on its own. Patient describes this sensation similarly but does report had more of a lightheaded sensation rather than room spinning. Today, patient reports that he had almost no fluid prior to going up on the scaffolding. Says that he only had 2 sips of [place] and no other liquids. Patient did take his blood pressure medications this morning as well. Evidently, his blood sugar was also a little low this morning per his history and he did not have anything for breakfast. Currently, patient is in no pain and is not dizzy. No other complaints at this time. ED course: Patient evaluated in ED by provider. Labs are significant for a mildly elevated white blood cell count at 11.8, glucose of 160. CT of the head, cervical spine, chest, abdomen/pelvis, lumbar spine only shows acute fracture of the superior endplate of L3 and acute fracture vertically through the L2 vertebral body. Orthospine was called and stated that these fractures are nonoperative but they would see the patient in the morning. Patient was given a bolus of fluid as well as pain control. The hospital service was then consulted for admission. Allergies Allergy/AdvReac Type Severity Reaction Status Date / Time IRVING Inhibitors AdvReac Intermediate Cough Verified 01/28/23 12:51 Beta-Adrenergic Agents AdvReac Intermediate Cough Verified 01/28/23 12:51 Home Medications Medication Instructions Recorded Confirmed Type ihbyyfxl-owrucwta-lkeyh acid 400 1 tab PO QAM 08/10/18 04/24/23 History mcg-vit K 20 mcg-lycop 300 mcg tablet (Men's Multivitamin) cholecalciferol (vitamin D3) 25 25 mcg PO QAM 06/27/21 04/24/23 History mcg (1,000 unit) capsule aspirin 81 mg tablet,delayed 81 mg PO QAM 04/16/22 04/24/23 History release atorvastatin 10 mg tablet 10 mg PO QPM #90 tabs 09/23/22 04/24/23 Rx insulin glargine 100 unit/mL (3 40 unit (0.4 mL) subcut QAM #45 mL 09/23/22 04/24/23 Rx mL) subcutaneous pen (Lantus Solostar U-100 Insulin) metformin 1,000 mg tablet 1,000 mg PO BID #180 tabs 09/23/22 04/24/23 Rx losartan 100 1 tab PO QAM #90 tabs 09/24/22 04/24/23 Rx mg-hydrochlorothiazide 12.5 mg tablet nifedipine 60 mg tablet,extended 60 mg PO QAM #90 tabs 09/24/22 04/24/23 Rx release pen needle, diabetic 31 gauge x #100 ea 09/26/22 04/24/23 Rx 3/16" (BD Ultra-Fine Mini Pen Needle) blood sugar diagnostic (AbGenomicsTouch #200 ea 10/21/22 04/24/23 Rx Verio test strips) lancets 33 gauge (OneTouch Delica #200 ea 10/21/22 04/24/23 Rx Lancets) Trulicity 3 mg/0.5 mL subcutaneous 3 mg (0.5 mL) subcut .COMPLEX #6 mL 11/12/22 04/24/23 Rx pen injector (dulaglutide) tamsulosin 0.4 mg capsule 0.8 mg PO PM 12/20/22 04/24/23 History ondansetron HCl 8 mg tablet 8 mg PO Q8H PRN nausea and 12/25/22 04/24/23 Rx vomiting #10 tabs finasteride 5 mg tablet 5 mg PO DAILY #90 tabs 03/13/23 04/24/23 Rx Past Med/Surg History Medical History BPH (benign prostatic hyperplasia) Diabetes mellitus, type 2 Dyslipidemia Fatty liver Hypertension Sensorineural hearing loss of both ears Sleep apnea Tinnitus, bilateral Surgical History H/O prostate biopsy History of colonoscopy History of lumbar surgery History of tooth extraction Hx of oral surgery (12/25/22) Hx of surgical procedure Family History Brother Diabetes Sister Diabetes Mother Diabetes Father Diabetes Grandmother Colon cancer Unknown Hypertension Grandfather Myocardial infarction Uncle Prostate cancer Other No family history of adverse response to anesthesia Denies family history of Ovarian cancer Breast cancer Social History Smoking Status: Never smoker Second Hand Exposure: No; Do You Dip or Chew Tobacco: No; Tobacco Cessation Education Requested by Patient: No Hx Alcohol Use: Yes Alcohol type: beer Alcohol Intake Frequency: Monthly or Less Alcohol Intake Frequency Comment: rarely Hx Substance Use: No Preferred Language: Italian Communication Ability: Effective Visual Impairment: No Limitations Hearing Ability: Normal Supervisor Chemical Required: No Beliefs That Will Affect Care: None marital status: Current Living Situation: Spouse current occupational status: retired current occupation: used to work in construction How many Children do You have: 2 Other Information That Helps Us Care for You: No Feels Safe at Home: Yes Safety Concerns: Feels Safe At This Time Childhood Exposure to Second-Hand Smoke: No Diet: diabetic caffeine: Yes (very little) during the past year weight has: remained stable Dental Care, Regularly: No Physical Activity Frequency: Does not Exercise Physical Activity Frequency Comment: does mostly throughout the summer Seatbelt Use: always Sunscreen Use: No Assistive Devices: CPAP and Glasses Review of Systems Review of Systems: All systems reviewed & are unremarkable except as noted in HPI & below Physical Exam Constitutional: WD/WN, vitals as above Eyes: + anicteric sclerae Neck: trachea midline, no thyromegaly Respiratory: normal respiratory effort, lungs clear to auscultation Cardiovascular: RRR, no murmur, no edema Gastrointestinal (Abdomen): normal bowel sounds, soft, nontender, no hepatosplenomegaly Musculoskeletal: Head/Neck/Chest: normocephalic and head atraumatic Skin: no rashes, warm and dry Neurologic: normal touch/pain/proprioception and moves all extremities Psychiatric: A+Ox3, euthymic affect Results & Data Results & Data Vital Signs (Past 12 Hours) Vital Signs Temp Pulse Pulse Resp BP BP Pulse Ox 06/08/23 00:00 64 21 136/76 96 06/07/23 23:32 64 06/07/23 22:55 36.9 C 63 14 115/75 96 06/07/23 21:15 71 16 123/74 95 06/07/23 19:48 82 99 06/07/23 19:31 89 06/07/23 19:33 15 98 06/07/23 19:28 36.8 C 89 16 143/85 H 93 O2 Del Method O2 Flow Rate 06/08/23 00:00 Nasal Cannula 2 06/07/23 23:32 06/07/23 22:55 06/07/23 21:15 Nasal Cannula 2 06/07/23 19:48 Room Air 06/07/23 19:31 06/07/23 19:33 Room Air 06/07/23 19:28 Room Air Supervising Physician Co-Signing Physician Notes Attending addendum: I have physically seen this patient, have supervised the medical residents activities, and agree with the H&P unless as otherwise noted. Assessment and Plan: Closed compression fracture L2-3 status post fall- Pain management as noted Consult orthopedic spine surgery Syncope and collapse- Admit to monitored bed to monitor for any possible arrhythmia Correct dehydrated status with IV fluids Diabetes mellitus- Hold Trulicity and metformin Placed on Accu-Cheks with NovoLog SSI Remaining orders and notations as noted (6) Hypertension Hypertension type: essential hypertension Qualified Code(s): I10 - Essential (primary) hypertension
[2023-06-08] MEDS ORDERED: GLUCOSE 40% GEL 15 GM TUBE PO PRN (02:20)
[2023-06-08] MEDS ORDERED: GLUCOSE 10 TAB/TUBE PO PRN (02:20)
[2023-06-08] MEDS ORDERED: CARBOHYDRATES FOR HYPOGLYCEMIA PO PRN (02:20)
[2023-06-08] MEDS ORDERED: GLUCAGON FOR INJ 1 MG VIAL SQ PRN (02:20)
[2023-06-08] MEDS ORDERED: POLYETHYLENE (MIRALAX) 17 GM PACK PO PRN (02:20)
[2023-06-08] MEDS ORDERED: MoRPHine SULFATE 4 MG/ML 1 ML CARP\\VIAL IV PRN (02:20)
[2023-06-08] MEDS ORDERED: ACETAMINOPHEN 325 MG TAB PO PRN (02:20)
[2023-06-08] MEDS ORDERED: DEXTROSE 50% 50 ML SYRINGE IV PRN (02:20)
[2023-06-08] MEDS: SODIUM CHLORIDE 0.9% 1000ML 1,000 ML IV SCH (02:30)
[2023-06-08] MEDS: MoRPHine SULFATE 2 MG/ML CARP IV PRN ×3 (02:36→12:28)
[2023-06-08 05:50] LABS: Hematocrit (blood only) 37.4 % (42.0-52.0); Hemoglobin 13.3 g/dl (14.0-18.0); Mean Corpuscular Hemoglobin 30.7 pg (25.0-34.0); Mean Corpuscular Hgb Conc 35.6 g/dL (32.0-36.0); Mean Corpuscular Volume 86.4 fL (80.0-100.0); Platelet Count 146 K/uL (130-400); RDW Coefficient of Variation 12.9 % (11.5-14.5); RDW Standard Deviation 40.5 fL (36.4-46.3); Red Blood Count 4.33 M/uL (4.70-6.10); White Blood Count 9.09 K/ul (4.8-10.8)
[2023-06-08 06:05] LABS: BUN Creatinine Ratio 20.7 (10-20); Calcium 8.2 mg/dl (8.6-10.3); Creatinine Clr Calc Pharmacy 98.3 ml/min; Est GFR (African American) 105.3 ml/min; Est GFR (Non-African American) 90.9 ml/min; Potassium 3.7 mmol/L (3.5-5.1)
--- NOTE | 2023-06-08 07:26 | Hospitalist Progress Note ---
Date of Service June 08, 2023 Assessment & Plan (1) Closed compression fracture of lumbar vertebra: Plan: Patient is a 68-year-old male with past medical history of DM 2, hypertension, hyperlipidemia, severe obstructive sleep apnea, and fatty liver disease who presents to the hospital for evaluation for fall. Patient found to have 2 lumbar fractures, L2 & L3 that are nonoperative. Patient to be admitted to be evaluated by orthospine and for adequate pain control. -Lumbar CT showing acute fracture of the superior endplate of L3 and acute fracture vertically through the L2 vertebral body -Pain control with scheduled Tylenol lidoderm, miacalcin and parenteral morphine as needed ortho spine ordered a brace, PT/OT and eval if rehab appropriate (2) Syncope and collapse: Plan: secondary to dehydration and antihypertensive medications (3) Controlled type 2 diabetes mellitus with insulin therapy: Plan: - Hold Trulicity and metformin, basal bolus insulin with sliding scale while inpatient -Carb consistent diet (4) Enlarged prostate with lower urinary tract symptoms (LUTS): Plan: - Continue finasteride and Flomax (5) Severe obstructive sleep apnea: Plan: - CPAP at night at 6 cm H2O (6) Hypertension: Plan: - Continue BP meds, patient status post bolus of normal saline (7) Dyslipidemia: Plan: - Continue statin Plan Dispo: Admit to [facility] with telemetry Diet: Carb consistent, not n.p.o. given vertebral fractures are nonoperative DVT prophylaxis: Lovenox, no active bleeding and no procedure indicated CODE STATUS: Full code Admission and Anticipated Discharge Date Admission Date: June 08, 2023 Subjective as expected has fair to good pain control at rest and worsened with movement seen by ortho and will order brace Physical Exam Physical Exam: cardiac exam is regular legs with intact distal sensation and appropriate reflex Results & Data Results & Data Vital Signs (Past 12 Hours) Vital Signs Temp Pulse Pulse Pulse Resp BP BP 06/08/23 02:08 80 06/08/23 02:44 06/08/23 02:44 98.2 F 79 18 135/76 06/08/23 02:07 98.2 F 79 18 135/76 06/08/23 02:33 72 30 H 06/08/23 01:53 69 18 131/79 06/08/23 00:00 64 21 06/07/23 23:32 64 06/07/23 22:55 98.4 F 63 14 06/07/23 21:15 71 16 06/07/23 19:48 82 06/07/23 19:31 89 06/07/23 19:33 15 06/07/23 19:28 98.2 F 89 16 143/85 H BP Pulse Ox O2 Del Method O2 Flow Rate 06/08/23 02:08 06/08/23 02:44 CPAP 06/08/23 02:44 91 Room Air 06/08/23 02:07 91 Room Air 06/08/23 02:33 91 06/08/23 01:53 90 Room Air 06/08/23 00:00 136/76 96 Nasal Cannula 2 06/07/23 23:32 06/07/23 22:55 115/75 96 06/07/23 21:15 123/74 95 Nasal Cannula 2 06/07/23 19:48 99 Room Air 06/07/23 19:31 06/07/23 19:33 98 Room Air 06/07/23 19:28 93 Room Air PG Care Time/CCT Total # of Minutes Spent Total Time Spent with Patient: Total time spent is greater than 50% in coordination of care (as documented) at patient's floor/unit and/or counseling patient: Coding Level of Care Code 71726 SUB INP/OBS CARE 235MIN Diagnoses Closed compression fracture of lumbar vertebra S32.000A Syncope and collapse R55 Controlled type 2 diabetes mellitus with insulin therapy E11.9; Z79.4 Enlarged prostate with lower urinary tract symptoms (LUTS) N40.1 Severe obstructive sleep apnea G47.33 Hypertension I10 Hypertension type: essential hypertension Dyslipidemia E78.5 (6) Hypertension Hypertension type: essential hypertension Qualified Code(s): I10 - Essential (primary) hypertension
[2023-06-08] MEDS: LANTUS PER UNIT CHARGE SQ SCH ×2 (08:09→21:02)
[2023-06-08] MEDS: INSULIN ASPART PER UNIT CHARGE SC SCH ×4 (08:09→21:02)
--- NOTE | 2023-06-08 08:12 | Electrocardiogram Report ---
Test Reason : Blood Pressure : / mmHG Vent. Rate : 072 BPM Atrial Rate : 072 BPM P-R Int : 188 ms QRS Dur : 104 ms QT Int : 376 ms P-R-T Axes : 051 001 028 degrees QTc Int : 411 ms Normal sinus rhythm Incomplete right bundle branch block Normal ECG When compared with ECG of 09-APR-2022 14:31, No significant change was found Confirmed by Brad Abarca ([id number]) on 06/08/2023 8:12:07 AM Referred By: REFERRED SELF Confirmed By:Brad Abarca
[2023-06-08] MEDS: ENOXAPARIN INJ 40 MG/0.4 ML SYR SQ SCH (09:02)
[2023-06-08] MEDS: hydroCHLOROthiazide 25 MG TAB PO SCH (09:04)
[2023-06-08] MEDS: ASPIRIN 81 MG ECTAB PO SCH (09:04)
[2023-06-08] MEDS: NIFEdipine EXTENDED REL 30 MG TABCR PO SCH (09:05)
[2023-06-08] MEDS: LOSARTAN POTASSIUM 50 MG TAB PO SCH (09:05)
[2023-06-08] MEDS: FINASTERIDE 5 MG TAB PO SCH (09:05)
[2023-06-08] MEDS: ACETAMINOPHEN 500 MG TAB PO SCH ×3 (09:06→21:03)
[2023-06-08] MEDS: LIDOCAINE 5% 1 PATCH TD SCH (09:31)
[2023-06-08] MEDS: CALCITONIN SALMON NA 200 IU/AC 3.7 ML BTL SCH (09:32)
--- NOTE | 2023-06-08 10:25 | Orthopedic Consultation ---
Date of Service June 08, 2023 History of Present Illness Reason for Consultation: . L2 and L3 fractures Requesting Physician: . Attending Physician: Owen Yip MD . 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 He fell onto his back after becoming lightheaded, initially got up and was moving around but then later due to back pain presented to the emergency room for evaluation. CT scan imaging of the spine including the cervical spine and lumbar spine, reveals the patient to have nondisplaced left lateral compression fractures of L2 and L3. The patient notes pain in the lower lumbar spine mid lumbar spine region, but no radicular symptoms into the lower extremities and no weakness. Exam reveals the patient indicate pain in the mid lower lumbar spine, otherwise he has intact motor strength in the lower extremities with 5/5 strength her EHL ankle plantar dorsiflexion knee flexion extension. CT scan imaging of the lumbar spine from 06/07/2023 reveals the patient to have degenerative changes involving the lumbar spine with some dextroscoliosis, he has varying degrees of some spondylosis and osteophyte formation, on the left side of L2 and L3 there are fracture lines which involve part of the vertebral body, minimal loss of height, more the lateral osteophyte at L3 and part of the vertebral body on L2. Impression: Fall from height with L2 and L3 fractures as described, these are stable patterns, low back pain his main complaint. Plan: I talked with the patient and reviewed with him the nature of the findings on the CT scan, at this time I am recommending mobilization with physical therapy, will also obtain the lumbosacral corset type brace. I advised the patient on no bending lifting twisting, we will be following the patient with radiographs post discharge in the office. Appropriate pain medication, patient is to call for appointment in approximately 1 week. Allergies Allergy/AdvReac Type Severity Reaction Status Date / Time IRVING Inhibitors AdvReac Intermediate Cough Verified 01/28/23 12:51 Beta-Adrenergic Agents AdvReac Intermediate Cough Verified 01/28/23 12:51 Home Medications Medication Instructions Recorded Confirmed Type rshlnpqt-auiwyblv-pmdvq acid 400 1 tab PO QAM 08/10/18 04/24/23 History mcg-vit K 20 mcg-lycop 300 mcg tablet (Men's Multivitamin) cholecalciferol (vitamin D3) 25 25 mcg PO QAM 06/27/21 04/24/23 History mcg (1,000 unit) capsule aspirin 81 mg tablet,delayed 81 mg PO QAM 04/16/22 04/24/23 History release atorvastatin 10 mg tablet 10 mg PO QPM #90 tabs 09/23/22 04/24/23 Rx insulin glargine 100 unit/mL (3 40 unit (0.4 mL) subcut QAM #45 mL 09/23/22 04/24/23 Rx mL) subcutaneous pen (Lantus Solostar U-100 Insulin) metformin 1,000 mg tablet 1,000 mg PO BID #180 tabs 09/23/22 04/24/23 Rx losartan 100 1 tab PO QAM #90 tabs 09/24/22 04/24/23 Rx mg-hydrochlorothiazide 12.5 mg tablet nifedipine 60 mg tablet,extended 60 mg PO QAM #90 tabs 09/24/22 04/24/23 Rx release pen needle, diabetic 31 gauge x #100 ea 09/26/22 04/24/23 Rx 3/16" (BD Ultra-Fine Mini Pen Needle) blood sugar diagnostic (OneTouch #200 ea 10/21/22 04/24/23 Rx Verio test strips) lancets 33 gauge (OneTouch Delica #200 ea 10/21/22 04/24/23 Rx Lancets) Trulicity 3 mg/0.5 mL subcutaneous 3 mg (0.5 mL) subcut .COMPLEX #6 mL 11/12/22 04/24/23 Rx pen injector (dulaglutide) tamsulosin 0.4 mg capsule 0.8 mg PO PM 12/20/22 04/24/23 History ondansetron HCl 8 mg tablet 8 mg PO Q8H PRN nausea and 12/25/22 04/24/23 Rx vomiting #10 tabs finasteride 5 mg tablet 5 mg PO DAILY #90 tabs 03/13/23 04/24/23 Rx Past Med/Surg History Medical History BPH (benign prostatic hyperplasia) Diabetes mellitus, type 2 Dyslipidemia Fatty liver Hypertension Sensorineural hearing loss of both ears Sleep apnea Tinnitus, bilateral Surgical History H/O prostate biopsy History of colonoscopy History of lumbar surgery History of tooth extraction Hx of oral surgery (12/25/22) Hx of surgical procedure Family History Brother Diabetes Sister Diabetes Mother Diabetes Father Diabetes Grandmother Colon cancer Unknown Hypertension Grandfather Myocardial infarction Uncle Prostate cancer Other No family history of adverse response to anesthesia Denies family history of Ovarian cancer Breast cancer Social History Smoking Status: Never smoker Second Hand Exposure: No; Do You Dip or Chew Tobacco: No; Tobacco Cessation Education Requested by Patient: No Hx Alcohol Use: Yes Alcohol type: beer Alcohol Intake Frequency: Monthly or Less Alcohol Intake Frequency Comment: rarely Hx Substance Use: No Preferred Language: Eritrean Communication Ability: Effective Visual Impairment: No Limitations Hearing Ability: Normal Bag Cutter Required: No Beliefs That Will Affect Care: None marital status: Current Living Situation: Spouse current occupational status: retired current occupation: used to work in construction How many Children do You have: 2 Other Information That Helps Us Care for You: No Feels Safe at Home: Yes Safety Concerns: Feels Safe At This Time Childhood Exposure to Second-Hand Smoke: No Diet: diabetic caffeine: Yes (very little) during the past year weight has: remained stable Dental Care, Regularly: No Physical Activity Frequency: Does not Exercise Physical Activity Frequency Comment: does mostly throughout the summer Seatbelt Use: always Sunscreen Use: No Assistive Devices: CPAP and Glasses Review of Systems All systems reviewed & are unremarkable except as noted in HPI & below. Physical Exam . Results & Data Results & Data Laboratory Results . Diagnostic Findings . PG Care Time/CCT Total # of Minutes Spent Total Time Spent with Patient: Total time spent is greater than 50% in coordination of care (as documented) at patient's floor/unit and/or counseling patient: Coding Level of Care Code 20233 IN/OBS CONSULT LVL 3,45M Diagnoses
[2023-06-08] MEDS: oxyCODONE HCL IR 5 MG TAB (IMMEDIATE RELEASE) PO PRN ×2 (10:38→21:04)
--- NOTE | 2023-06-08 19:41 | Billing Data ---
Date of Service June 08, 2023 Coding Level of Care Code 91065 INT INP/OBS CARE
[2023-06-08] MEDS: TAMSULOSIN HCL 0.4 MG CAP PO SCH (21:02)
[2023-06-08] MEDS: ATORVASTATIN 10 MG TAB PO SCH (21:03)
[2023-06-09] MEDS: ACETAMINOPHEN 500 MG TAB PO SCH ×3 (05:04→21:23)
[2023-06-09] MEDS: ENOXAPARIN INJ 40 MG/0.4 ML SYR SQ SCH (08:16)
[2023-06-09] MEDS: ASPIRIN 81 MG ECTAB PO SCH (08:24)
[2023-06-09] MEDS: FINASTERIDE 5 MG TAB PO SCH (08:25)
[2023-06-09] MEDS: hydroCHLOROthiazide 25 MG TAB PO SCH (08:28)
[2023-06-09] MEDS: CALCITONIN SALMON NA 200 IU/AC 3.7 ML BTL SCH (08:29)
[2023-06-09] MEDS: LIDOCAINE 5% 1 PATCH TD SCH (08:33)
[2023-06-09] MEDS: LOSARTAN POTASSIUM 50 MG TAB PO SCH (08:34)
[2023-06-09] MEDS: NIFEdipine EXTENDED REL 30 MG TABCR PO SCH (08:35)
[2023-06-09] MEDS: LANTUS PER UNIT CHARGE SQ SCH ×2 (09:04→21:22)
[2023-06-09] MEDS: INSULIN ASPART PER UNIT CHARGE SC SCH ×4 (09:05→21:23)
[2023-06-09] MEDS: oxyCODONE HCL IR 5 MG TAB (IMMEDIATE RELEASE) PO PRN ×2 (09:46→21:23)
[2023-06-09 09:48] LABS: iSTAT Creatinine 0.9 mg/dl (0.6-1.3); iSTAT Hemoglobin 14.6 g/dl (14.0-18.0); iSTAT Ionized Calcium 1.18 mmol/l (1.12-1.32)
--- NOTE | 2023-06-09 18:30 | Hospitalist Progress Note ---
Date of Service June 09, 2023 Assessment & Plan (1) Closed compression fracture of lumbar vertebra: Plan: Patient is a 68-year-old male with past medical history of DM 2, hypertension, hyperlipidemia, severe obstructive sleep apnea, and fatty liver disease who presents to the hospital for evaluation for fall. Patient found to have 2 lumbar fractures that are nonoperative. Patient to be admitted to be evaluated by orthospine and for adequate pain control. -Lumbar CT showing acute fracture of the superior endplate of L3 and acute fracture vertically through the L2 vertebral body, orthospine consulted, appreciate recommendations pain control regimen now includes scheduled Tylenol Miacalcin lidocaine as needed oxycodone for breakthrough pain (2) Syncope and collapse: Plan: - I feel the patient's syncope is likely due to dehydration in the setting of little oral intake this morning and working outside as well as taking 3 blood pressure medications no arrhythmias to worry about this being arrhythmia genic no recurrence of orthostasis but did get dizzy with standing he feels due to the pain (3) Controlled type 2 diabetes mellitus with insulin therapy: Plan: - Hold Trulicity and metformin, basal bolus insulin with sliding scale while inpatient -Carb consistent diet (4) Enlarged prostate with lower urinary tract symptoms (LUTS): Plan: - Continue finasteride and Flomax (5) Severe obstructive sleep apnea: Plan: - CPAP at night at 6 cm H2O (6) Hypertension: Plan: - Continue BP meds, patient status post bolus of normal saline (7) Dyslipidemia: Plan: - Continue statin Plan if patient's pain is tolerable, he can ambulate with a walker, and his brace arrives from Ortho consider discharge 725 as long as dizziness is not significant DVT prophylaxis: Lovenox, no active bleeding and no procedure indicated CODE STATUS: Full code Admission and Anticipated Discharge Date Admission Date: June 08, 2023 Subjective as expected has fair to good pain control patient will to move around the room with physical therapy is encouraged with the improvement of pain after 1 day pending orthotic brace ordered by orthopedic spine surgery Physical Exam Physical Exam: cardiac exam is regular legs with intact distal sensation and appropriate reflex Results & Data Results & Data Vital Signs (Past 12 Hours) Vital Signs Temp Pulse Pulse Pulse Resp BP BP 06/09/23 15:52 98.2 F 75 20 141/89 H 06/09/23 11:53 99.0 F 70 16 146/78 H 06/09/23 07:36 99.0 F 79 20 155/89 H 06/09/23 07:14 06/09/23 07:07 73 Pulse Ox O2 Del Method 06/09/23 15:52 92 Room Air 06/09/23 11:53 92 Room Air 06/09/23 07:36 94 Room Air 06/09/23 07:14 Room Air, CPAP 06/09/23 07:07 PG Care Time/CCT Total # of Minutes Spent Total Time Spent with Patient: Total time spent is greater than 50% in coordination of care (as documented) at patient's floor/unit and/or counseling patient: Coding Level of Care Code 70841 SUB INP/OBS CARE 2/35MIN Diagnoses Closed compression fracture of lumbar vertebra S32.000A Syncope and collapse R55 Controlled type 2 diabetes mellitus with insulin therapy E11.9; Z79.4 Enlarged prostate with lower urinary tract symptoms (LUTS) N40.1 Severe obstructive sleep apnea G47.33 Hypertension I10 Hypertension type: essential hypertension Dyslipidemia E78.5 (6) Hypertension Hypertension type: essential hypertension Qualified Code(s): I10 - Essential (primary) hypertension
[2023-06-09] MEDS: ATORVASTATIN 10 MG TAB PO SCH (21:25)
[2023-06-09] MEDS: TAMSULOSIN HCL 0.4 MG CAP PO SCH (21:53)
[2023-06-10] MEDS: LOSARTAN POTASSIUM 50 MG TAB PO SCH (08:06)
[2023-06-10] MEDS: CALCITONIN SALMON NA 200 IU/AC 3.7 ML BTL SCH (08:06)
[2023-06-10] MEDS: ASPIRIN 81 MG ECTAB PO SCH (08:06)
[2023-06-10] MEDS: FINASTERIDE 5 MG TAB PO SCH (08:06)
[2023-06-10] MEDS: NIFEdipine EXTENDED REL 30 MG TABCR PO SCH (08:06)
[2023-06-10] MEDS: hydroCHLOROthiazide 25 MG TAB PO SCH (08:07)
[2023-06-10] MEDS: LIDOCAINE 5% 1 PATCH TD SCH (08:07)
[2023-06-10] MEDS: ENOXAPARIN INJ 40 MG/0.4 ML SYR SQ SCH (08:07)
[2023-06-10] MEDS: ACETAMINOPHEN 500 MG TAB PO SCH ×2 (08:07→13:20)
[2023-06-10] MEDS: LANTUS PER UNIT CHARGE SQ SCH (08:16)
[2023-06-10] MEDS: INSULIN ASPART PER UNIT CHARGE SC SCH ×3 (08:16→17:05)
[2023-06-10] MEDS: oxyCODONE HCL IR 5 MG TAB (IMMEDIATE RELEASE) PO PRN ×2 (09:58→19:13)
--- NOTE | 2023-06-10 19:47 | Discharge Summary ---
Date of Service June 10, 2023 Admission HPI Per Admitting Provider Patient is a 68-year-old male with past medical history of DM 2, hypertension, hyperlipidemia, severe obstructive sleep apnea, and fatty liver disease who presents to the hospital for evaluation for fall. Patient reports that approximately noon today, patient was on scaffolding doing work on the house. 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 The fall was approximately 5 to 6 feet. Patient reports he was only passed out for a short period of time. He then got up and reported that he was in minimal to no pain at the time but as the day progressed, he became more lightheaded and started to develop pain in his lower back. Because the dizziness persisted and the pain was becoming worse, his called EMS services to come to the emergency department for further evaluation. It seems the patient has been having difficulty with dizziness for the past 2 years. Occurs about once a months for the patient gets a room spinning sensation but only lasts a few seconds to a minute before going away on its own. Patient describes this sensation similarly but does report had more of a lightheaded sensation rather than room spinning. Today, patient reports that he had almost no fluid prior to going up on the scaffolding. Says that he only had 2 sips of [place] and no other liquids. Patient did take his blood pressure medications this morning as well. Evidently, his blood sugar was also a little low this morning per his history and he did not have anything for breakfast. Currently, patient is in no pain and is not dizzy. No other complaints at this time. ED course: Patient evaluated in ED by provider. Labs are significant for a mildly elevated white blood cell count at 11.8, glucose of 160. CT of the head, cervical spine, chest, abdomen/pelvis, lumbar spine only shows acute fracture of the superior endplate of L3 and acute fracture vertically through the L2 vertebral body. Orthospine was called and stated that these fractures are nonoperative but they would see the patient in the morning. Patient was given a bolus of fluid as well as pain control. The hospital service was then consulted for admission. Principal Diagnosis Fracture of Lumbar Spine L2 and L3 Discharge Data Allergies Allergy/AdvReac Type Severity Reaction Status Date / Time IRVING Inhibitors AdvReac Intermediate Cough Verified 01/28/23 12:51 Beta-Adrenergic Agents AdvReac Intermediate Cough Verified 01/28/23 12:51 Consultations 06/08/23 00:53 ED Decision to Admit Stat 06/08/23 01:05 Consult Orthopedic Spine Surgery Routine Ordered Studies 06/07/23 19:49 CT abd pelvis IV con only Stat CT cervical spine wo con Stat CT chest diagnostic w con Stat CT head/brain wo con Stat CT lumbar spine w con Stat Hospital Course (1) Closed compression fracture of lumbar vertebra: Patient is a 68-year-old male with past medical history of DM 2, hypertension, hyperlipidemia, severe obstructive sleep apnea, and fatty liver disease who presents to the hospital for evaluation for fall. Patient found to have 2 lumbar fractures that are nonoperative. Patient to be admitted to be evaluated by orthospine and for adequate pain control. -Lumbar CT showing acute fracture of the superior endplate of L3 and acute fracture vertically through the L2 vertebral body, orthospine consulted, appreciate recommendations pain control regimen now includes scheduled Tylenol Miacalcin lidocaine as n eeded oxycodone for breakthrough pain (2) Syncope and collapse: - I feel the patient's syncope is likely due to dehydration in the setting of little oral intake this morning and working outside as well as taking 3 blood pressure medications no arrhythmias to worry about this being arrhythmia genic no recurrence of orthostasis but did get dizzy with standing he feels due to the pain (3) Controlled type 2 diabetes mellitus with insulin therapy: - Hold Trulicity and metformin, basal bolus insulin with sliding scale while inpatient -Carb consistent diet (4) Enlarged prostate with lower urinary tract symptoms (LUTS): - Continue finasteride and Flomax (5) Severe obstructive sleep apnea: - CPAP at night at 6 cm H2O (6) Hypertension: - Continue BP meds, patient status post bolus of normal saline (7) Dyslipidemia: - Continue statin Plan if patient's pain is tolerable, he can ambulate with a walker, and his brace arrives from Ortho consider discharge 725 as long as dizziness is not significan t DVT prophylaxis: Lovenox, no active bleeding and no procedure indicated CODE STATUS: Full code Total Time Total Time Spent Total Time Spent (In Minutes): 33 Discharge Plan Discharge Items Patient Disposition: Home - Self-Care Reason For Visit: FALL, SYNCOPE Discharge Diagnosis: Compression Fracture Of Lumbar Spine Health Concerns: Rest and Heal Goals: Restorative Care Activity: As commented below Lifting Comment: don't lift yet Non-emergency contact: Primary Care Provider Call non-emergency contact if: you have any medication questions and your symptoms worsen Follow-up/Referrals: Alba Rod PA-C [Primary Care Provider] - Diet: Regular Addtl Attending Provider Instructions: HHC PT OT Pending Studies at Discharge: No Stand-Alone Forms: My [facility] [employer], Smoking Cessation Medications and DC Order Prescriptions: New oxycodone 5 mg tablet 5 mg PO Q8H PRN (Reason: pain) Qty: 30 0RF Continued metformin 1,000 mg tablet 1,000 mg PO BID Qty: 180 3RF insulin glargine [Lantus Solostar U-100 Insulin] 100 unit/mL (3 mL) insulin pen 40 unit subcut QAM Qty: 45 3RF atorvastatin 10 mg tablet 10 mg PO QPM Qty: 90 3RF nifedipine 60 mg tablet extended release 60 mg PO QAM Qty: 90 3RF losartan-hydrochlorothiazide 100-12.5 mg tablet 1 tab PO QAM Qty: 90 3RF (DME) pen needle, diabetic [BD Ultra-Fine Mini Pen Needle] 31 gauge x 3/16" needle See Rx Instructions .ROUTE .MEDSUPPLY Qty: 100 3RF Rx Instructions: as directed once daily (DME) lancets [OneTouch Delica Lancets] 33 gauge misc See Rx Instructions .ROUTE .MEDSUPPLY Qty: 200 3RF Rx Instructions: USE TO CHECK BLOOD SUGARS TWICE DAILY E11.9 (DME) OneTouch Verio test strips Strip See Rx Instructions .ROUTE .MEDSUPPLY Qty: 200 3RF Rx Instructions: test 2 times daily daily or as directed Trulicity 3 mg/0.5 mL pen injector 3 mg subcut .COMPLEX Qty: 6 3RF Rx Instructions: 3 mg subcut once a week.; finasteride 5 mg tablet 5 mg PO DAILY Qty: 90 3RF Men's Multivitamin 400-20-300 mcg Tablet 1 tab PO QAM tamsulosin 0.4 mg capsule 0.8 mg PO PM aspirin 81 mg tablet,delayed release (DR/EC) 81 mg PO QAM No Action cholecalciferol (vitamin D3) 25 mcg (1,000 unit) capsule 25 mcg PO .evening Discharge Orders: Discharge Order (Routine); Ordered 06/10/23 Ordered By: Owen Lindsey Admission Data Admit Date/Time: 06/08/23 01:02 Attending Provider: Owen Lindsey Admit Provider: Mark Rashid Primary Care Provider: Alba Rod Other Providers: Elie Eller ; Arpan [place] ; [facility] Other Interventions: Discharge Summary Assessment (RN) Last Done: 06/10/23 18:56 Coding Level of Care Code 39773 INP/OBS DISCH >30 MIN Diagnoses Closed compression fracture of lumbar vertebra S32.000A Syncope and collapse R55 Controlled type 2 diabetes mellitus with insulin therapy E11.9; Z79.4 Enlarged prostate with lower urinary tract symptoms (LUTS) N40.1 Severe obstructive sleep apnea G47.33 Hypertension I10 Hypertension type: essential hypertension Dyslipidemia E78.5 Time Spent (min) 33
== END 2023-06-10 20:20 | disposition home health service (06) | DRG 552 ==
LOC: ED 19:25 → SUATTDRO 06-08 01:02 → 2N 06-08 01:02